=== PATIENT | female | born 1945 | race Caucasian/White ===

== ENCOUNTER 2020-11-14 08:20 | Day surgery (SDC) | payer OTHER ==
[~2020-11-14] VITALS: Ht 157.5 cm; Wt 104.3 kg
--- NOTE | ~2020-11-14 | O ---
[facility] [place] [address] OPERATIVE REPORT Name: RUSTY HUMPHRIES Room #: 150-8 [facility]..#: [id number] Admission: 11/14/20 Attend Phys: Philippe Burns MD Discharge: Date of : 47 Report #: [id number] THIS REPORT FOR: cc: Sherly Morgan MD, Sherly Burns,Philippe Beth MD ~ DOC #: [id number] cc: Sherly Burns MD DATE OF SERVICE: 11/14/2020 SURGEON: Philippe Burns MD ORCHID WORKER: None. PREOPERATIVE DIAGNOSIS: Bilateral upper lid dermatochalasia with superior visual field defect. POSTOPERATIVE DIAGNOSIS: Bilateral upper lid dermatochalasia with superior visual field defect. OPERATION PERFORMED: Bilateral upper lid functional blepharoplasty. ANESTHESIA: Local with IV sedation. COMPLICATIONS: None. INDICATIONS FOR SURGERY: This patient has acquired upper lid dermatochalasia with superior visual field loss both eyes because of excessive upper lid tissues to include skin and fat. Visual field testing demonstrates dense superior visual defects. Retesting with the upper lid elevated shows an improvement in visual field loss of over 30% and in excess of 12 degrees. The current procedures are undertaken in order to improve the patient's visual function. Informed consent was obtained to include but not limited to the loss of vision, bleeding, infection, scarring, failure to improve the problem and need for further surgery. DESCRIPTION OF OPERATION: The patient was taken to the operating room, where 2% Xylocaine with epinephrine mixed with equal parts of 0.75% Marcaine with Wydase was administered transcutaneously to each upper lid. The patient was then prepped and draped in the usual sterile fashion and a skin-marking pen was then utilized to outline an upper lid crease that was symmetrical on each side. Graefe forceps were then used to quantitate the redundant upper lid skin and it was similarly outlined. The incisions were then made with Irene scissors and [address] [address] OPERATIVE REPORT Name: RUSTY HUMPHRIES Room #: 150-8 [facility]#: [id number] Admission: 11/14/20 Attend Phys: Philippe Burns MD Discharge: Date of : 47 Report #: [id number] a skin-muscle flap removed from each side with high-temp cautery. Hemostasis was achieved with the monopolar cautery as it was throughout the case. The orbital septum was then identified and the central and medial fat pads were inspected. The redundant soft tissue was then sculpted with the monopolar cautery. The upper lid crease was then reformed with tightening of the pretarsal orbicularis muscle. The upper lid crease was then further reformed with multiple interrupted 6-0 chromic sutures. The skin was then closed with a running 6-0 plain gut suture. The wound was then cleaned and dressed with ophthalmic antibiotic ointment and a nonstick dressing. The patient was transported to the recovery area, where cold compresses were applied, having tolerated the procedure well with no anesthetic or operative complications being noted. MD RA CunhaW/MOIRA By: [id number] Philippe Burns MD /nt
[~2020-11-14 08:20] MED LIST: ACTOS 30 MG TAB30 M1 PO; ADVIL200 M1 PO; CEPHALEXIN500 MG PO; DULOXETINE HCL20 MG PO; FLEXERIL PO; GABAPENTIN 100100 MG PO; LATANOPROST 0.2.5 ML OPHTHALMIC; LOSARTAN POTAS100 MG PO; MIRTAZAPINE15 M2 PO; NORVASC5 MG PO; OMEPRAZOLE40 MG PO; PRAVACHOL40 MG PO; PROAIR HFA8.5 GM INH; ROPINIROLE HCL0.5 MG PO; VITAMIN D31250 MCG PO
[2020-11-14 09:35] LABS: HEMATOCRIT 38.1 % (37.0-47.0); HEMOGLOBIN 13.1 gm/dL (12.0-15.0); MCH 29.6 pg (26.0-34.0); MCHC 34.5 g/dL (28.0-37.0); MCV 85.9 fL (80.0-100.0); RBC 4.44 mil/uL (4.20-5.00); RDW 12.6 % (10.5-14.5); WBC 5.3 thou/uL (4.0-11.0)
[2020-11-14 10:00] VITALS: BP 181/77
== END 2020-11-14 12:30 | disposition home or self-care (01) ==
LOC: OR 08:20 → TBA 08:25 → OR 09:53
PROVIDERS: ATTEND Ophthalmology
DX: H02.834 Dermatochalasis of left upper eyelid (principal); H02.831 Dermatochalasis of right upper eyelid; H53.462 Homonymous bilateral field defects, left side; H53.461 Homonymous bilateral field defects, right side; I10 Essential (primary) hypertension; E11.9 Type 2 diabetes mellitus without complications; K21.9 Gastro-esophageal reflux disease without esophagitis; Z98.890 Other specified postprocedural states; Z79.899 Other long term (current) drug therapy; Z20.822 Contact with and (suspected) exposure to COVID-19; Z87.891 Personal history of nicotine dependence; Z90.710 Acquired absence of both cervix and uterus; Z90.49 Acquired absence of other specified parts of digestive tract; Z96.653 Presence of artificial knee joint, bilateral; Z98.84 Bariatric surgery status; Z88.2 Allergy status to sulfonamides; Z88.8 Allergy status to other drugs, medicaments and biological substances
CPT/HCPCS: 50010; 50101; 50386; 50398; 51636; 56531; 62110; 62850; 70005